=== PATIENT | male | born 1995 | race Hispanic/Latino ===

== ENCOUNTER 2019-05-11 | Emergency (ER) | payer BC ==
[~2019-05-11] MED LIST: NAPROSYN500 MG OR; NO; NO CURRENT MEDS; NO MEDS
[2019-05-11] MEDS ORDERED: METFORMIN500 MG PO (07:27)
[2019-05-11] MEDS ORDERED: IBUPROFEN600 MG PO (08:30)
== END 2019-05-11 09:15 | disposition home or self-care (01) | DRG 563 ==
DX: S83.91XA Sprain of unspecified site of right knee, initial encounter (principal); E11.9 Type 2 diabetes mellitus without complications; X50.9XXA Other and unspecified overexertion or strenuous movements or postures, initial encounter; Y93.89 Activity, other specified; Y92.89 Other specified places as the place of occurrence of the external cause; Y99.0 Civilian activity done for income or pay; Z79.84 Long term (current) use of oral hypoglycemic drugs
CPT/HCPCS: L1830